=== PATIENT | male | born 1950 | race Caucasian/White ===

== ENCOUNTER 2017-01-09 08:46 | Day surgery (SDC) | payer MEDICARE, BC ==
[2017-01-09] MEDS ORDERED: Lactated Ringers 1,000 ML IV SCH (09:00)
[2017-01-09] MEDS ORDERED: fentaNYL 100 MCG/2 ML SDV ONE (09:36)
[2017-01-09] MEDS ORDERED: Midazolam 1 MG/ML 2 ML SDV ONE (09:36)
[2017-01-09] MEDS ORDERED: Propofol 200 MG/20 ML SDV ONE (09:36)
[2017-01-09 11:30] VITALS: BP 140/66
--- NOTE | 2017-01-10 09:47 | OR ---
DATE OF PROCEDURE: 01/09/2017 PREOPERATIVE DIAGNOSIS: Colon cancer screening. POSTOPERATIVE DIAGNOSES: 1. Small colon polyp, 40 cm from the anal verge. 2. Diverticulosis. PROCEDURE PERFORMED: Colonoscopy to the cecum with biopsy resection of small polyp, 40 cm from the anal verge. SURGEON: Parvez Hinkle MD. ANESTHESIA: IV anesthesia with monitored anesthesia care. INDICATION: This 66-year-old white male is referred for a colonoscopy for colon cancer screening. He says his last colonoscopic exam was done 11 years ago. I counseled him for the procedure including risks and alternatives, and he gave his informed consent to proceed. DESCRIPTION OF PROCEDURE: The patient was placed in the left lateral decubitus position. IV anesthesia was administered by the Anesthesia Service. Time-out was held. A rectal exam was performed, which was unremarkable. The flexible video Olympus colonoscope was introduced through his anus, up his rectum, and out his colon all way to the cecum. Once the cecum was reached, the scope was slowly withdrawn examining the mucosa throughout. No mucosal abnormalities were noted until we reached 40 cm from the anal verge. Here, we saw a small polyp, which was removed with a single bite of the biopsy forceps. The scope was withdrawn further. We did see a single diverticulum. There was no bleeding or inflammation associated with it. The scope was retroflexed in the rectum with the distal rectum appearing unremarkable. The scope was straightened and removed. He tolerated the procedure well. Parvez Hinkle MD /[id number] [facility]
== END 2017-01-09 11:45 | disposition home or self-care (01) ==
LOC: JP.SDS 08:46
PROVIDERS: ATTEND Surgery
DX: Z12.11 Encounter for screening for malignant neoplasm of colon (principal); D12.6 Benign neoplasm of colon, unspecified; K57.30 Diverticulosis of large intestine without perforation or abscess without bleeding; I10 Essential (primary) hypertension; E78.00 Pure hypercholesterolemia, unspecified; J44.9 Chronic obstructive pulmonary disease, unspecified; J18.9 Pneumonia, unspecified organism; E11.9 Type 2 diabetes mellitus without complications; K21.9 Gastro-esophageal reflux disease without esophagitis; Z95.5 Presence of coronary angioplasty implant and graft; Z90.49 Acquired absence of other specified parts of digestive tract; Z88.8 Allergy status to other drugs, medicaments and biological substances
CPT/HCPCS: 45380; 88305; J2250; J2704; J3010; J7120